=== PATIENT | female | born 1995 | race Caucasian/White ===

== ENCOUNTER 2017-10-12 02:17 | Inpatient (IN) | payer OTHER ==
[~2017-10-12] VITALS: Ht 167.6 cm; Wt 80.0 kg
[2017-10-18] MEDS ORDERED: LACTATED RINGER'S 1000ML 1,000 ML IV PRN (07:50)
[2017-10-18] MEDS ORDERED: PENICILLIN G POTASSIUM IV 6 MU in DEXTROSE 5% 250ML 250 ML IV ONE (08:00)
[2017-10-18] MEDS ORDERED: MISOPROSTOL 25 MCG TAB PV ONE (08:15)
[2017-10-18] MEDS: LACTATED RINGER'S 1000ML 1,000 ML IV SCH ×2 (08:23→21:37)
[2017-10-18 08:36] LABS: HEMATOCRIT 35.8 % (37-47); MEAN CELL VOLUME 87.3 fL (80-100); MEAN CORPUSCULAR HEMOGLOBIN 29.3 pg (25-34); MEAN CORPUSCULAR HGB CONC 33.5 g/dl (32-36); MEAN PLATELET VOLUME 8.5 fL (7.4-10.4); PLATELET COUNT 278 K/uL (130-400); RED CELL DISTRIBUTION WIDTH CV 15.7 % (11.5-14.5); RED CELL DISTRIBUTION WIDTH SD 49.8 fL (36.4-46.3); WHITE BLOOD COUNT 10.06 K/uL (4.8-10.8)
[2017-10-18 11:04] VITALS: Ht 167.6 cm; Wt 80.0 kg
[2017-10-18] MEDS ORDERED: PRENTAB26 PO (11:09)
[2017-10-18] MEDS: PENICILLIN G POTASSIUM IV 3 MU in DEXTROSE 5% 100ML 100 ML IV PRN ×3 (13:07→21:27)
[2017-10-18] MEDS ORDERED: LACTATED RINGER'S 1000ML 500 ML IV PRN ×2 (13:10→20:15)
[2017-10-18] MEDS ORDERED: OXYTOCIN 30 UNITS/500ML NSS IV PRN (13:15)
[2017-10-18] MEDS ORDERED: EpHEDrine SULFATE INJ 50 MG/ML AMP ONE (19:25)
[2017-10-18] MEDS ORDERED: BUPIVACAINE 0.25% 30 ML VIAL ONE (19:25)
[2017-10-18] MEDS ORDERED: FENTANYL 2MCG/ML ROPIV 1.25MG/ML 100ML BAG ONE (19:26)
[2017-10-18] MEDS ORDERED: FENTANYL CITRATE INJ 50 MCG/1 ML 2 ML VIAL ONE (19:26)
[2017-10-18] MEDS ORDERED: EpHEDrine SULFATE INJ 50 MG/ML AMP IV PRN (20:15)
[2017-10-18] MEDS ORDERED: NALOXONE HCL INJ 0.4 MG/1 ML VIAL/CARP IV PRN (20:15)
[2017-10-18] MEDS ORDERED: FENTANYL 2MCG/ML ROPIV 1.25MG/ML 100ML BAG EPI PRN (20:15)
[2017-10-18] MEDS ORDERED: ONDANSETRON INJ 2 MG/ML 2 ML VIAL ONE (21:33)
[2017-10-19] MEDS ORDERED: DIPHTHERIA/TETANUS/PERTUSSIS 0.5 ML SYR/VIAL IM. ONE (00:45)
[2017-10-19] MEDS ORDERED: OXYCODONE/ACETAMINOPHEN 5-325 TAB PO PRN (00:45)
[2017-10-19] MEDS ORDERED: SUPERCREAM 0.870 % 15GM JAR EXT PRN (00:45)
[2017-10-19] MEDS ORDERED: LANOLIN OINT EXT PRN (00:45)
[2017-10-19] MEDS ORDERED: OXYTOCIN 30 UNITS/500ML NSS IV PRN (00:45)
[2017-10-19] MEDS ORDERED: BENZOCAINE 20% AER SPR 82.5 GM CAN EXT PRN (00:45)
[2017-10-19] MEDS ORDERED: HYDROCORTISONE ACETATE 25 MG SUPP PR PRN (00:45)
--- NOTE | 2017-10-19 01:07 | DELIVERY SUMMARY ---
DATE OF OPERATION: 10/19/2017 DATE OF DELIVERY: 10/19/2017 TIME OF DELIVERY: 12:21 a.m. DELIVERY OF PLACENTA: 12:25 a.m. DELIVERY NOTE: The patient is a 22-year-old 1 para 0 at 41 weeks gestation who was admitted to labor and delivery on the morning of 10/18/2017 for a scheduled induction of labor secondary to post dates. Her care has been uncomplicated. On admission, she was found to be 1-2 cm, 60% effaced and -3 station. She was given 1 dose of Cytotec 25 mcg intravaginally for cervical ripening and then oxytocin per protocol was began for labor augmentation. She received an epidural for anesthesia and penicillin for GBS prophylaxis. Artificial rupture of membranes was performed at 1749 on 10/18/2017 with clear amniotic fluid noted. She reached complete dilation at 9:00 p.m. on 10/18/2017. She pushed to deliver at 12:21 a.m. on 10/19/2017. She delivered a viable female infant in the right occiput anterior position to an intact perineum. The baby was delivered and placed on the patient's abdomen. Cord was clamped x2 and cut. Apgars were 8 at 1 minute and 9 at 5 minutes; please see nursing notes for further baby assessment. Cord blood donation and cord blood was obtained. Intact placenta with 3-vessel cord was delivered at 12:25 a.m. Oxytocin infusion was then began. The lower uterine segment and vagina was cleared of any blood clots and debris. Exploration of the perineum noted a first-degree vaginal laceration which was repaired with 3-0 Vicryl suture in continuous running fashion. Excellent hemostasis was noted. No other lacerations were seen. Estimated blood loss was 300 mL. All sponge, instrument and needle counts were found to be correct x2. Both baby and patient tolerated the delivery well and were in recovery with stable vital signs. I attest to the content of the Intraoperative Record and any orders documented therein. Any exception s are noted below.
[2017-10-19 03:05] VITALS: BP 125/74; PULSE 91; TEMP 36.5
[2017-10-19] MEDS: IBUPROFEN 600 MG TAB PO PRN ×3 (05:30→17:27)
[2017-10-19] MEDS: ACETAMINOPHEN 325 MG TAB PO PRN ×3 (08:04→23:12)
[2017-10-19] MEDS: DOCUSATE SODIUM 100 MG CAP PO SCH ×2 (08:05→19:37)
[2017-10-19] MEDS: PRENATAL VITAMIN TAB PO SCH (08:05)
[2017-10-19] MEDS: FERROUS SULFATE 325 MG TAB PO SCH (08:05)
[2017-10-19 08:10] VITALS: BP 112/65; PULSE 71; TEMP 36.6
--- NOTE | 2017-10-19 08:15 | Anesthesia Procedure Note ---
Anesthesia Epidural Removal Nt Date & Time Oct 19, 2017 at 08:15 Vital Signs Vital Signs Past 12 Hours Date Time Temp Pulse Resp B/P (MAP) Pulse Ox O2 Delivery O2 Flow Rate FiO2 10/19/17 03:05 Room Air 10/19/17 03:05 36.5 91 18 125/74 (91) Room Air Notes Mental Status: alert / awake / arousable, participated in evaluation Nausea / Vomiting: adequately controlled Pain: adequately controlled Airway Patency, RR, SpO2: stable & adequate BP & HR: stable & adequate Hydration State: stable & adequate Neuraxial Anesthesia: was administered Anesthetic Complications: no major complications apparent, pt satisfied with anesthetic care Epidural: removed without complications, with tip intact
[2017-10-19 12:10] VITALS: BP 114/70; PULSE 77; TEMP 36.5
[2017-10-19 15:10] VITALS: BP 118/66; PULSE 84; TEMP 36.6
[2017-10-19 19:20] VITALS: BP 104/60; PULSE 97; TEMP 36.6
[2017-10-20] VITALS: BP 118/71; PULSE 91; TEMP 36.8
[2017-10-20 03:40] VITALS: BP 108/66; PULSE 85; TEMP 36.7
[2017-10-20 07:07] LABS: HEMATOCRIT 32.9 % (37-47); HEMOGLOBIN 10.8 g/dL (12.0-16.0)
[2017-10-20 08:15] VITALS: BP 99/61; PULSE 76; TEMP 36.2
[2017-10-20] MEDS: PRENATAL VITAMIN TAB PO SCH (08:45)
[2017-10-20] MEDS: DOCUSATE SODIUM 100 MG CAP PO SCH ×2 (08:45→20:06)
[2017-10-20] MEDS: FERROUS SULFATE 325 MG TAB PO SCH (08:45)
[2017-10-20] MEDS: IBUPROFEN 600 MG TAB PO PRN ×3 (08:46→20:06)
--- NOTE | 2017-10-20 09:53 | OB/GYN Progress Note ---
INFORMATICA ARCHITECT Progress Note Date of Service: Oct 20, 2017. Patient is seen and examined. She feels well, but her tail bone hurts No pressure or swelling, not sure she has hemorrhoids She pushed for 3hr 20 min Ambulating without dizziness Voiding without difficulty Tolerating regular diet with out N&V Flatus+, BM negative Bleeding is minimal No fever/ chills/ CP/ SOB/ N&V/ Leg pain Breast feeding without problems Date Time Temp Pulse Resp B/P (MAP) Pulse Ox O2 Delivery O2 Flow Rate FiO2 10/20/17 03:40 36.7 85 18 108/66 (80) Room Air 10/20/17 00:00 Room Air 10/20/17 00:00 36.8 91 20 118/71 (87) Room Air 10/19/17 19:20 Room Air 10/19/17 19:20 36.6 97 18 104/60 (75) Room Air 10/19/17 15:10 36.6 84 20 118/66 (83) Room Air 10/19/17 15:10 Room Air 10/19/17 12:10 36.5 77 24 114/70 (85) Room Air Last 24 Hours Test 10/20/17 06:04 Hemoglobin 10.8 g/dL Hematocrit 32.9 % PE: General: Alert, orientedx3, NAD Abd: soft, NT, fundus firm, below Umbilicus Perineum intact, No edema, no bruise Lochia rubra minimal Anal skin has 2 small skin tags Digital exam normal, no hematoma Ext; NT, no edema AP: 22 yo s/p , ppd# 1 VSS Afebrile doing well Coccygeal pain, most likely from prolonged second stage of labor Discussed conservative measures, avoid constipation, pain meds and donut cushion Continue routine care All questions were answered D/C home tomorrow
--- NOTE | 2017-10-20 10:04 | OB/GYN Progress Note ---
WATER FABRICATOR OPERATOR Progress Note Date of Service: Oct 20, 2017. Baby is being discharged and mom likes to be discharged Discussed when to call All questions were answered
[2017-10-20] MEDS ORDERED: MTR600X PO (10:06)
[2017-10-20] MEDS ORDERED: OXYC-57 PO (10:06)
--- NOTE | 2017-10-20 10:07 | Discharge Instructions ---
Discharge Instructions Date of Service Oct 20, 2017. Admission Reason for Admission: Induction Discharge Discharge Diagnosis / Problem: Discharge Goals Goal(s): Routine recovery after delivery Medications Continue Dispensed Medications: supercream, dermaplast, lansinoh Activity Recommendations Activity Limitations: as noted below ACTIVITY RECOMMENDATIONS: * Gradual return to full activity over the next 2-3 weeks. * No lifting - nothing heavier than baby over the next 2-3 weeks. * Do not engage in vigorous exercise, sexual activity or sports until cleared by your physician. * Do not drive or operate any motorized equipment until cleared by your physician. * You may shower/bathe daily. BREAST CARE: If you are not breast feeding: * Wear a supportive bra 24 hours a day for one to two weeks. * Avoid stimulating your breasts and nipples as much as possible during the first few weeks after delivery. * When taking a shower, have the warm water hit your back, not breasts. * When your breasts feel full, apply ice packs. Usually three to four times a day helps ease the discomfort. * Take a mild pain medication (Tylenol/Motrin) when you are uncomfortable. If breast feeding: * Use breast milk to lubricate nipples. Lansinoh cream may be used for sore nipples. You do not need to remove cream prior to breast feeding. If using a different brand of cream, check the label for directions regarding removal of cream prior to nursing. * Wear a supportive bra. * If having problems with breasts or breast feeding, call a residential sales consultant or your health care provider. EPISIOTOMY CARE: After delivery, if you have an episiotomy (stitches), the following steps will ease discomfort and aid healing. * For the first 24 hours after delivery, place ice packs next to your episiotomy to help reduce swelling. * After the first 24 hour-period, sitz baths, either portable or in the tub, are suggested. A shower with a shower arm sprayed over the episiotomy may be comforting. * Brittaney care should be done after each voiding and bowel movement. Squirt warm water from a plastic bottle over the perineum (region of the body between the anus and urinary opening) and pat dry. * Use Dermoplast to ease discomfort. Shake container. [place] directly over the episiotomy. * Place a Tucks on a clean sanitary pad next to your episiotomy. OVER THE COUNTER MEDICATION: * For discomfort or pain, you may use Acetaminophen (Tylenol), Ibuprofen (Advil ), or Naproxen (Aleve) following the package directions. * For constipation you may use Colace following the package directions. SPECIAL CARE INSTRUCTIONS: When you are discharged from the hospital, it is important for you to follow the instructions listed below: * During the first week at home, you should be able to care for yourself and your baby. In addition, the usual light household activities are encouraged. * Limit your activities to the way you feel. Do not try to clean the house or move furniture. Be sensible. * If you actively engage in sports and have done so up until the time of your delivery, you may resume these activities as soon as you feel able. This may take up to one month or even longer. Use good judgment. * Continue to take your vitamins for at least six weeks after the of your baby. * Your diet need not be limited unless you were on a special diet before your delivery. Breast-feeding mothers need around 2500 calories per day and at least 64-80 ounces of fluid per day (8 to 10 glasses). * You should eat foods from the four major food groups. Crash diets or fad diets are to be avoided. Eating lean meats, fresh fruits and vegetables, low-fat dairy products, high fiber foods and a regular exercise program, will help you get back to your pre- weight without putting your health at risk. * Constipation is sometimes a problem after delivery. Take a mild laxative as needed. If breast feeding, Milk of Magnesia is acceptable to use. You may use a suppository or Fleets enema if no episiotomy. * A daily shower or tub bath is suggested. Be sure to thoroughly and gently dry the perineum. * A bloody vaginal discharge will usually continue until around four weeks post . A small amount of bleeding may continue for as long as six weeks. Vaginal discharge changes from the bright red bleeding after delivery to pink then brownish and finally yellowish-pink before becoming white and disappearing. * Bleeding may increase with activity. Your first period may come in 4-8 weeks. If you are breast feeding, your period may be delayed even longer. * Decker (sex) can begin whenever both you and your partner feel comfortable and do not have any form of genital infection. It is recommended that you wait until after your return appointment and discuss with your physician. If you have questions, please talk to your health care practitioner. A condom should be used to prevent infection and . * Foreplay, gentle intercourse and lubrication is very important the first several times to prevent pain. A water-based lubricant such as K-Y jelly or Astroglide may be used. * Tampons may be used six weeks after delivery. * Douching should be avoided for 6 weeks after delivery. * If you have RH negative blood and your baby is RH positive, you will receive RHOGAM by injection prior to discharge. The nurse will give you a card to keep with you that has the date and place that you received RHOGAM after delivery. * During your care, you had a Rubella screen done to check for the presence of rubella antibodies in your blood. If your test was negative, you will receive a Rubella vaccine prior to discharge. This vaccine may cause a fever, soreness at the injection site and flu-like symptoms. If these symptoms persist, notify your health care practitioner. is not advised for three months after a Rubella vaccine. There is a higher chance of having a baby with defects if conceived within three months of getting the vaccine. * If you were discharged 24 hours from delivery or before 48 hours: Visiting nurses will come to your home 48 hours after discharge to assess you and your baby. The visiting nurse will meet with you while you are in the hospital to arrange a time and get directions to your home. * Verbalizes understanding of car seat law as reviewed with patient nursing. * Car Seat hand-out given and reviewed with patient by nursing. * Shaken baby information reviewed with patient by nursing. Call you doctor if: * Heavy bleeding (saturating several pads an hour) or passing clots the size of your fist. * A fever >101 degrees F (38.3 degrees C) on two occasions four hours apart and/or chills. * Unusual pain in the pelvic or vaginal areas. * "Baby Blues" lasting longer than two weeks. If you have any questions or concerns, call your health care practitioner at . FOLLOW-UP VISIT: * Please call the office at to schedule a 6 week examination. It is important you keep this appointment. * It is important for you to make arrangements for either yearly or twice yearly check-ups thereafter. . Current Hospital Diet Patient's current hospital diet: Regular OB Diet Discharge Diet Recommended Diet: Regular Diet Pending Studies Studies pending at discharge: no Medical Emergencies . Who to Call and When: Medical Emergencies: If at any time you feel your situation is an emergency, please call 911 immediately. . Non-Emergent Contact Non-Emergency issues call your: Leather Lacer, Specialist Call Non-Emergent contact if: you have a fever, temperature is above 100.5, your pain is not controlled, your pain is worsening, your pain is unusual for you, wound has increased drainage . . "Provider Documentation" section prepared by Jeffery Johnson. .
[2017-10-20] MEDS ORDERED: CLC100 PO (10:09)
[2017-10-20 16:00] VITALS: BP 109/65; PULSE 88; TEMP 36.5
[2017-10-20 19:45] VITALS: BP 111/55; PULSE 83; TEMP 36.8
[2017-10-20] MEDS ORDERED: BISACODYL 5 MG TABEC PO SCH (20:00)
[2017-10-20] MEDS: ACETAMINOPHEN 325 MG TAB PO PRN (21:20)
[2017-10-21] VITALS: BP 100/64; PULSE 76; TEMP 36.6
[2017-10-21] MEDS: IBUPROFEN 600 MG TAB PO PRN ×3 (05:02→13:33)
[2017-10-21 06:15] LABS: HEMATOCRIT 33.3 % (37-47); HEMOGLOBIN 10.9 g/dL (12.0-16.0); MEAN CELL VOLUME 88.6 fL (80-100); MEAN CORPUSCULAR HGB CONC 32.7 g/dl (32-36); MEAN PLATELET VOLUME 8.6 fL (7.4-10.4); PLATELET COUNT 227 K/uL (130-400); RED CELL DISTRIBUTION WIDTH CV 16.1 % (11.5-14.5); RED CELL DISTRIBUTION WIDTH SD 51.3 fL (36.4-46.3); WHITE BLOOD COUNT 9.86 K/uL (4.8-10.8)
[2017-10-21] MEDS ORDERED: BISACODYL 10 MG SUPP PR PRN (07:00)
--- NOTE | 2017-10-21 07:42 | OB/GYN Progress Note ---
OPERATION SUPERVISOR Progress Note Date of Service Oct 21, 2017. Subjective conversation w/ patient, conversation w/ family, physical exam Ambulation: ambulating normally Voiding: no voiding problems Passing Gas: Yes Diet Tolerance: Regular Diet Feeding Type: Breast Feeding Objective Vital Signs Date Time Temp Pulse Resp B/P (MAP) Pulse Ox O2 Delivery O2 Flow Rate FiO2 10/21/17 00:00 Room Air 10/21/17 00:00 36.6 76 18 100/64 (76) Room Air 10/20/17 19:45 Room Air 10/20/17 19:45 36.8 83 18 111/55 (73) Room Air 10/20/17 16:00 36.5 88 20 109/65 (80) 10/20/17 08:15 36.2 76 20 99/61 (74) Room Air Physical Exam General Appearance: WELL-APPEARING, NO APPARENT DISTRESS Abdomen: non tender, soft Fundus: Firm Extremities: non-tender, normal inspection, no pedal edema, no calf tenderness Laboratory Results Last 24 Hours Test 10/21/17 06:04 White Blood Count 9.86 K/uL Red Blood Count 3.76 M/uL Hemoglobin 10.9 g/dL Hematocrit 33.3 % Mean Corpuscular Volume 88.6 fL Mean Corpuscular Hemoglobin 29.0 pg Mean Corpuscular Hemoglobin Concent 32.7 g/dl RDW Standard Deviation 51.3 fL RDW Coefficient of Variation 16.1 % Platelet Count 227 K/uL Mean Platelet Volume 8.6 fL Assessment and Plan Post- Day Number: 2 Continue Routine Care: discharged
[2017-10-21 08:00] VITALS: BP 108/68; PULSE 75; TEMP 36.4
[2017-10-21] MEDS: DOCUSATE SODIUM 100 MG CAP PO SCH (08:02)
[2017-10-21] MEDS: FERROUS SULFATE 325 MG TAB PO SCH (08:02)
[2017-10-21] MEDS: PRENATAL VITAMIN TAB PO SCH (08:02)
[2017-10-21] MEDS: ACETAMINOPHEN 325 MG TAB PO PRN ×2 (08:02→12:04)
[2017-10-21 14:04] VITALS: BP_DIAS 68; PULSE 75; TEMP 36.4
== END 2017-10-21 14:22 | disposition home or self-care (01) | DRG 775 ==
LOC: C.LD 10-18 07:25 → C.OBG 10-19 03:10
PROVIDERS: ADMIT Obstetrics & Gynecology; ATTEND Obstetrics & Gynecology
PROC: 3E0P7GC Introduction of Other Therapeutic Substance into Female Reproductive, Via Natural or Artificial Opening (ICD-10-PCS; principal; 2017-10-19)
PROC: 10E0XZZ Delivery of Products of Conception, External Approach (ICD-10-PCS; principal; 2017-10-19)
DX: O48.0 Post-term pregnancy (principal); O71.6 Obstetric damage to pelvic joints and ligaments; O70.0 First degree perineal laceration during delivery; Z3A.40 40 weeks gestation of pregnancy; Z37.0 Single live birth

== ENCOUNTER 2023-03-21 07:44 | Inpatient (IN) ==
[2023-03-21] MEDS ORDERED: LIDOCAINE 1% LOCAL 20 ML VIAL INFIL PRN (08:50)
[2023-03-21] MEDS ORDERED: OXYTOCIN 30 UNITS/NSS 30 UNITS/500 ML BAG IV PRN ×3 (08:50→15:43)
[2023-03-21] MEDS ORDERED: LACTATED RINGER'S 1,000 ML IV PRN (08:50)
[2023-03-21 09:43] LABS: Hematocrit (blood only) 34.2 % (37.0-47.0); Hemoglobin 10.8 g/dl (12.0-16.0); Mean Corpuscular Hemoglobin 26.9 pg (25.0-34.0); Mean Corpuscular Hgb Conc 31.6 g/dL (32.0-36.0); Mean Corpuscular Volume 85.1 fL (80.0-100.0); Platelet Count 286 K/uL (130-400); RDW Coefficient of Variation 13.7 % (11.5-14.5); RDW Standard Deviation 42.5 fL (36.4-46.3); Red Blood Count 4.02 M/uL (4.20-5.40); White Blood Count 10.63 K/ul (4.8-10.8)
--- NOTE | 2023-03-21 10:03 | History & Physical Report ---
Date of Service March 21, 2023 Assessment & Plan (1) Encounter for supervision of normal in multigravida: Plan: IUP at term for IOL pitocin induction begun epidural when requested anticipate vaginal Admission and Anticipated Discharge Date Admission Date: March 21, 2023 History of Present Illness Primary Care Provider: Leandro Zavala MD Patient is a 27 yo EDC 03/24/23 who presents at 39+ weeks for elective IOL. uncomplicated. GBS- negative. Allergies Allergy/AdvReac Type Severity Reaction Status Date / Time ziprasidone [From Geodon] AdvReac Intermediate elevated Verified 03/20/23 10:23 prolactin strawberries Allergy Unknown Uncoded 03/20/23 10:23 aripirazole AdvReac Intermediate agitation,weight Uncoded 03/20/23 10:23 gain Home Medications Medication Instructions Recorded Confirmed Type albuterol sulfate [Ventolin] PO PRN asthma 09/10/22 03/20/23 History fluticasone propionate [Flovent inhalation 09/10/22 03/20/23 History HFA] PNV cmb#95-ferrous fumarate-FA PO 11/05/22 03/20/23 History [ Multivitamins] breast pump #1 ea 02/28/23 03/20/23 Rx Patient History Medical History Anemia Asthma Flovent, albuterol inhaler 2-3 times weekly 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 Depression with anxiety Hx of migraines Kidney stone denies recent/current Nasal polyp s/p 01/2022 surgery; recurrence shortly post-op per patient, d/c'ed Dupixent during current UTI (urinary tract infection) 08/2022 Varicella vaccination Surgical History H/O nasal polypectomy S/P wisdom tooth extraction Family History Mother Breast cancer, Onset Age: 38 Thyroid cancer Grandmother (Maternal) Family history of Cassie thyroiditis Uncle Coloboma of eye Grandmother (Paternal) Hypertension Stroke Aunt Gunderson syndrome Denies family history of Ovarian cancer Colorectal cancer Social History (Updated 09/10/22 @ 11:01 by Zeinab Canseco Smoking Status: Former smoker Tobacco Type: Cigarettes Do You Dip or Chew Tobacco: No; Hx Alcohol Use: No Hx Substance Use: No Preferred Language: Swedish Communication Ability: Effective Bell Cleaner Required: No Beliefs That Will Affect Care: None marital status: Single marital status details: bailey Lugo (40) [phone] Current Living Situation: Spouse Current Living Situation Comment: lives with fob, daughter, father, fob's son 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, cats-fob change tatiana current occupational status: employed 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 Other Information That Helps Us Care for You: No Feels Safe at Home: Yes Safety Concerns: Feels Safe At This Time Review of Systems All systems reviewed & are unremarkable except as noted in HPI & below Physical Exam Constitutional: WD/WN, vitals as above Psychiatric: A+Ox3, euthymic affect Genitourinary: OB Exam Abdomen: + vertex, + estimated weight (7-8 pounds) and + irregular contractions Manual OB Exam: + cervical dilation 4 cm, + cervical effacement 50% and + station -2 Results & Data Vital Signs (Past 12 Hours) Vital Signs Temp Pulse Resp BP 03/21/23 09:52 86 03/21/23 09:52 124/68 03/21/23 09:30 20 03/21/23 09:30 20 03/21/23 09:00 20 03/21/23 09:00 20 03/21/23 08:06 98.1 F 20 03/21/23 07:59 83 124/66 Code Status & VTE Plan VTE Prophylaxis Plan VTE Prophylaxis will be ordered: No Coding Level of Care Code None Diagnoses Encounter for supervision of normal in multigravida Z34.80
[2023-03-21] MEDS ORDERED: fentaNYL citrate PF 100 MCG/2 ML VIAL ONE (14:58)
[2023-03-21] MEDS ORDERED: LIDOCAINE 2%/EPINEPHRINE 1:200,000 20 ML PF ONE (14:58)
[2023-03-21] MEDS ORDERED: ePHEDrine sulfate 50 MG/ML AMP ONE (14:58)
[2023-03-21] MEDS ORDERED: SODIUM CHLORIDE 0.9% PF INJ 10 ML VIAL ONE (14:58)
[2023-03-21] MEDS ORDERED: fentANYL 2 MCG/ML BUPIVacaine 0.125%-NSS 100ML BAG ONE (14:58)
[2023-03-21] MEDS ORDERED: BUPIVACAINE 0.25% PF 30 ML VIAL ONE (14:58)
[2023-03-21] MEDS ORDERED: BENZOCAINE 20% SPRY 85 APPLN/85 GM CAN EXT PRN (15:43)
[2023-03-21] MEDS ORDERED: bisacodyL 10 MG SUPP PR PRN (15:43)
[2023-03-21] MEDS ORDERED: ACETAMINOPHEN 325 MG TAB PO PRN (15:43)
[2023-03-21] MEDS ORDERED: DIPHTHERIA/TETANUS/PERTUSSIS Vaccine (Tdap, Age 7+yrs) 0.5mL SYR/VL IM ONE (15:43)
[2023-03-21] MEDS ORDERED: oxyCODONE/ACETAMINOPHEN 5mg/325mg TAB PO PRN (15:43)
[2023-03-21] MEDS ORDERED: HYDROCORTISONE ACETATE 25 MG SUPP PR PRN (15:43)
--- NOTE | 2023-03-21 15:48 | Delivery Summary ---
Vaginal Delivery Summary Date of Service March 21, 2023 Vaginal Delivery Summary and 1st Degree LAC Patient is a 2 para 1-0-0-1 female EDC of 03/24/2023 who presents for induction of labor. Pitocin induction per protocol was initiated. Membranes were ruptured for clear fluid. Following this she was feeling pelvic pressure and was noted to be 7 cm dilated. She quickly went to full dilation with the urge to push. She pushed effectively over intact perineum for delivery of a viable female . After the head was delivered, there was a mild shoulder dystocia which was resolved with hyperflexion of the hips. The anterior shoulder then delivered followed quickly by the posterior shoulder. The infant was placed on the mother's abdomen for further attention and drying. She was vigorous and moving all 4 limbs. After 1 minute, the cord was clamped and cut. Placenta was then expressed intact with a three-vessel cord. bleeding was controlled with dilute Pitocin and fundal massage. A first-degree vaginal laceration was repaired with 3-0 chromic after 1% lidocaine was used to anesthetize the laceration site. Estimated blood loss 200 cc. Mother and doing well after delivery. [facility] [place] Vaginal Delivery Charge Delivery Type Details: and 1st Degree LAC
[2023-03-21] MEDS: IBUPROFEN 600 MG TAB PO PRN ×2 (16:30→20:57)
[2023-03-21] MEDS: DOCUSATE SODIUM 100 MG CAP PO SCH (20:00)
[2023-03-22] MEDS: IBUPROFEN 600 MG TAB PO PRN ×3 (01:21→13:20)
[2023-03-22] MEDS ORDERED: ONDANSETRON INJ 2 MG/ML 2 ML VIAL IV PRN (03:42)
[2023-03-22] MEDS ORDERED: ONDANSETRON INJ 2 MG/ML 2 ML VIAL ONE (03:46)
[2023-03-22 06:28] LABS: Hematocrit (blood only) 30.7 % (37.0-47.0); Mean Corpuscular Hgb Conc 32.6 g/dL (32.0-36.0); Mean Platelet Volume 8.9 fL (9.4-12.4); Platelet Count 272 K/uL (130-400); RDW Coefficient of Variation 13.9 % (11.5-14.5); RDW Standard Deviation 41.5 fL (36.4-46.3); White Blood Count 12.79 K/ul (4.8-10.8)
--- NOTE | 2023-03-22 07:41 | Obstetrical Progress Note ---
Date of Service March 22, 2023 Assessment & Plan (1) Encounter for care and examination after delivery: satisfactory course continue current care plan discharge to home later today Day #:: 1 Subjective Ambulation: ambulating normally Voiding: no voiding problems Passing Gas:: Yes Diet Tolerance:: regular diet Lochia:: Small Feeding Type:: breast feeding Review of Systems All systems reviewed & are unremarkable except as noted in HPI & below Physical Exam Constitutional WD/WN, vitals as above Psychiatric A+Ox3, euthymic affect Genitourinary OB Exam Abdomen: + fundal height Fundus: + firm and + relation to umbilicus (1 below U) Results & Data Vital Signs (Past 12 Hours) Vital Signs Temp Pulse Resp BP Pulse Ox O2 Del Method 03/22/23 04:00 97.9 F 67 18 111/71 96 Room Air 03/22/23 00:40 97.5 F L 79 18 109/72 97 Room Air 03/21/23 20:15 Room Air 03/21/23 20:15 97.5 F L 88 18 116/74 97 Room Air
[2023-03-22] MEDS: DOCUSATE SODIUM 100 MG CAP PO SCH (07:50)
[2023-03-22] MEDS ORDERED: PRENATAL VITAMIN 1 TAB PO SCH (08:00)
[2023-03-22 14:01] VITALS: BP 106/63; PULSE 91; RESP 16; TEMP 97.9; O2SAT 96
[2023-03-22] MEDS ORDERED: bisacodyL 5 MG TABEC PO SCH (20:00)
== END 2023-03-22 16:30 | disposition home or self-care (01) | DRG 807 ==
LOC: 4S1 07:44 → 4E2 18:00
DX: Z87.891 Personal history of nicotine dependence; Z37.0 Single live birth; O66.0 Obstructed labor due to shoulder dystocia; O70.0 First degree perineal laceration during delivery; Z3A.39 39 weeks gestation of pregnancy